=== PATIENT | female | born 1935 | race Caucasian/White ===

== ENCOUNTER 2018-02-09 20:34 | Emergency (ER) | payer OTHER ==
[~2018-02-09] VITALS: Ht 157.5 cm; Wt 78.7 kg
[2018-02-09 21:07] LABS: Basophils # (auto) 0.1 uL; Basophils % (auto) 1.5 % (0.0-2.0); Eosinophils # (auto) 0.5 uL; Eosinophils % (auto) 5.6 % (0.0-7.0); Hematocrit 41.8 % (36.0-46.0); Hemoglobin 14.6 g/dL (12.2-16.2); Lymphocytes # (auto) 2.5 uL; Lymphocytes % (auto) 31.3 % (10.0-50.0); Mean Corpuscular Hgb Conc. 34.9 g/dL (32.0-36.0); Mean Corpuscular Volume 97.5 fL (80.0-100.0); Monocytes # (auto) 0.8 uL; Monocytes % (auto) 10.1 % (0.0-12.0); Neutrophils # (auto) 4.2 uL; Neutrophils % (auto) 51.5 % (37.0-80.0); Platelet Count (auto) 265 10^3/uL (140-450); Red Blood Cells 4.29 10^6/uL (4.0-5.20); Red Cell Distribution Width 12.4 % (11.8-14.3); White Blood Cell 8.1 10^3/uL (4.4-10.8)
[2018-02-09 21:27] LABS: Alanine Aminotransferase 27 U/L (13-56); Albumin 3.9 g/dL (3.4-5.0); Anion Gap 11 (5-15); Aspartate Aminotransferase 25 U/L (15-37); BUN/Creatinine Ratio 16.5; Blood Urea Nitrogen 16 mg/dL (7-18); Calcium 8.9 mg/dL (8.5-10.1); Carbon Dioxide 21 mmol/L (21-32); Chloride 111 mmol/L (98-107); GFR African American 71 mL/min; GFR Non-African American 59 mL/min; Glucose 138 mg/dL (74-106); Magnesium 2.3 mg/dL (1.6-2.6); Potassium 3.6 mmol/L (3.5-5.1); Sodium 143 mmol/L (136-145)
[2018-02-09 21:33] LABS: Alkaline Phosphatase 140 U/L (45-117); Bilirubin, Total 0.7 mg/dL (0.2-1.0); INR 0.94 (0.9-1.15); Partial Thromboplastin Time 24.9 sec (22.64-33.71); Prothrombin Time 10.2 sec (9.37-12.3); Total Protein 7.6 g/dL (6.4-8.2)
[2018-02-09] MEDS ORDERED: HYDROcodone-ACET 5/325MG TAB PO ONE (23:45)
[2018-02-10] MEDS ORDERED: MORPHINE SULFATE 8mg/ml INJ SDV IM ONE (02:30)
[2018-02-10] MEDS ORDERED: ONDANSETRON HCL 4 MG/2 ML VIAL IM ONE (04:15)
[2018-02-10 06:19] VITALS: BP 111/37
== END 2018-02-10 06:53 | disposition home or self-care (01) ==
LOC: ER 20:34 → EDBD 20:34 → ER 02-10 06:53
DX: M47.814 Spondylosis without myelopathy or radiculopathy, thoracic region (principal); M54.42 Lumbago with sciatica, left side; J44.9 Chronic obstructive pulmonary disease, unspecified
CPT/HCPCS: 36415; 71045; 72128; 72131; 73030; 80053; 83735; 83880; 84484; 85025; 85610; 85730; 93005; 96372; 99285; J2270; J2405

== ENCOUNTER 2024-11-02 06:15 | Inpatient (IN) | payer OTHER ==
[~2024-11-02] VITALS: Ht 149.9 cm; Wt 71.9 kg
[~2024-11-02 06:15] MED LIST: AMLO5CAP2 PO; ASPI81CH74 PO; ATOR40TA52 PO; BRIN1SUS7 OP; HYDR12.59 PO; LATA0.008 RIGHTEYE; LEVO25TA6 PO; MULT-688 PO; PROP1TAB51 PO
[2024-11-02] MEDS: TRANEXAMIC ACID 20 ML ONE (06:51)
[2024-11-02] MEDS ORDERED: MIDAZOLAM HCL 2MG/2ML 2ml VIAL (1mg/ml) ONE (06:51)
[2024-11-02] MEDS ORDERED: fentaNYL CITRATE 100 MCG/2 ML VL ONE (06:51)
[2024-11-02] MEDS ORDERED: PROPOFOL 10 MG/ML 20 ML IV ONE (06:53)
[2024-11-02] MEDS ORDERED: PHENYLEPHRINE HCL 10 MG/ML VL ONE (06:54)
[2024-11-02] MEDS: ceFAZolin 2 GM/D5W100ml 100 ML IV ONE (07:04)
[2024-11-02] MEDS: CEFEPIME 1GM/ 50ML 100 ML IV ONE (07:43)
[2024-11-02] MEDS ORDERED: NITROGLYCERIN 0.4 MG SL TAB SL PRN (08:45)
[2024-11-02] MEDS ORDERED: traMADol HCL 50 MG TAB PO PRN (08:45)
[2024-11-02] MEDS ORDERED: ACETAMINOPHEN 325 MG TAB PO PRN (08:45)
[2024-11-02] MEDS ORDERED: MORPHINE SULFATE INJ 2 MG/ml SYRG IV PRN (08:45)
[2024-11-02] MEDS: ceFAZolin 1GM/50ML 50 ML IV SCH (08:45)
[2024-11-02] MEDS ORDERED: ePHEDrine SULFATE 50 MG/ML AMP ONE (09:04)
[2024-11-02] MEDS: ROPIVACAINE 0.5% (5MG/ML) 20ML AMPULE IJ ONE (09:23)
[2024-11-02] MEDS: BUPIVACAINE 0.25% INJ 50ML VIAL ONE (09:33)
[2024-11-02] MEDS: KETOROLAC TROMETH 30 MG/ML 1ML VIAL ONE (09:34)
[2024-11-02] MEDS: VANCOMYCIN HCL 1000 MG VL ONE (09:35)
[2024-11-02] MEDS: MORPHINE SULF PF 5 MG/10 ML VIAL ONE (09:35)
[2024-11-02] MEDS: PROPRANOLOL HCL 20 MG TAB PO SCH (10:00)
[2024-11-02] MEDS: hydroCHLOROthiazide 25 MG TAB PO SCH (10:00)
[2024-11-02] MEDS: CEFEPIME 1GM/ 50ML 50 ML IV SCH (10:00)
[2024-11-02] MEDS: DOCUSATE SOD 100 MG CAP PO SCH (10:00)
--- NOTE | 2024-11-02 10:06 | DVH ---
EXAM: XY PELVIS AP CLINICAL INDICATION: sp Left KEN TECHNIQUE: XY PELVIS AP Comparison: None FINDINGS/IMPRESSION: There is no evidence of acute fracture or dislocation. Left hip arthroplasty. Severe right hip osteoarthritis The alignment is anatomical. There is no radiopaque foreign body.
[2024-11-02] MEDS: LACTATED RINGER'S 1,000 ML IV SCH (10:30)
[2024-11-02] MEDS ORDERED: ACETAMINOPHEN IV 1000 MG/100ML (10MG/ML) IV PRN (10:45)
[2024-11-02] MEDS: ONDANSETRON HCL 4 MG/2 ML VIAL IV ONE (11:04)
[2024-11-02] MEDS: HYDROmorphone HCL 2 MG/ML VL/or syr IV PRN ×2 (11:13→16:35)
[2024-11-02] MEDS: SODIUM CHLOR 0.9% PF (SALINE LOCK) 10ML VIAL/SYR IV SCH (14:00)
[2024-11-02 15:22] VITALS: PULSE 82; RESP 16; O2SAT 97
[2024-11-02 15:52] VITALS: BP 125/73; PULSE 84; RESP 18; TEMP 97.2; O2SAT 97
[2024-11-02] MEDS: ONDANSETRON HCL 4 MG/2 ML VIAL IV PRN (16:36)
[2024-11-02 17:00] VITALS: BP 134/64; PULSE 85; RESP 18; TEMP 97.3; O2SAT 95
[2024-11-02] MEDS: LATANOPROST 0.005 % OPTH(EYE) SOL 2.5ML RIGHTEYE SCH (17:57)
[2024-11-02 21:00] VITALS: BP 131/69; PULSE 96; RESP 19; TEMP 98.2; O2SAT 92
[2024-11-02] MEDS: HYDROcodone-ACET 5/325MG TAB PO PRN (23:09)
[2024-11-02] MEDS: ATORVASTATIN 20 MG TAB PO SCH (23:09)
[2024-11-03] MEDS: ceFAZolin 1GM/50ML 50 ML IV SCH (00:06)
[2024-11-03 01:00] VITALS: BP 100/48; PULSE 95; RESP 19; TEMP 98.1; O2SAT 92
[2024-11-03 05:00] VITALS: BP 118/45; PULSE 74; RESP 19; TEMP 98.3; O2SAT 92
--- NOTE | 2024-11-03 06:12 | DVHOP2 ---
Operative Report - 2 Report Details Date: 11/02/24 Preop Diagnosis: Left hip osteoarthritis Postop Diagnosis: Left hip osteoarthritis Surgeon: Ander Coleman MD Anesthesiologist: Bindu ANDINO Anesthesia: Regional Consent: The patient was informed of the risks and benefits of the procedure. These include but are not limited to complications of anesthesia, postoperative infection, incomplete relief of symptoms, recurrence of symptoms, damage to blood vessels, nerves and tendons, deep venous thrombosis, pulmonary embolism and possible need for repeat surgery in the future. Estimated Blood Loss: 300 cc Name of Procedure Performed Left total hip arthroplasty with computer navigation Procedure Details Procedure Details: FINDINGS: Extensive degenerative disease with grade IV changes INDICATION: This patient has failed non-operative treatments for hip arthritis and is now indicated for a total hip replacement. Preoperatively in the waiting area as well as in the office, I had a long discussion with the patient regarding the plan, the expected outcome, the risks, benefits, and alternatives of surgery. The risks include, but are not limited to, infection (which may require future surgery and removal of implants) , bleeding (which may require a transfusion), damage to nerves, arteries, veins, tendons, muscles and other adjacent structures. Also discussed the possibilities of dislocation, leg-length discrepancy, intraoperative fractures, implant loosening, heterotopic bone formation, and revision for variety of reasons, and medical complications etc. This was discussed at length and consent has been obtained. DESCRIPTION OF PROCEDURE: In the preoperative holding area, the consent was reviewed and the appropriate extremity was verified by the patient and marked with my initials. The patient was then transferred to the operating theatre. Appropriate anesthetia was induced. All bony prominences were well padded. A time out was performed verifying the side and site of surgery according to standard protocol. Preoperative antibiotics were given. Tranexamic acid was given. The patient was then placed in the lateral decubitus position and fixed with rigid pelvic fixation. All bony prominences were well padded and an axillary roll was placed. The affected hip area was then prepped and draped in the usual sterile fashion. Using an 11-blade, three stab incisions were made over the iliac crest. Two threaded guide pins were inserted into the crest confirming to be in bone. The pelvic array was attached to the pins and tightened. We made a standard posterolateral incision sharply through the skin and carried our dissection down through subcutaneous tissue to the underlying fascia achieving hemostasis where necessary. We incised the fascia in line with our incision. We identified and protected the sciatic nerve. We took down the external rotators and hip capsule from their insertion into the greater trochanter, tagged them and retracted them posteriorly for further protection of the sciatic nerve. A check point was placed into the greater trochanter and the hip center and leg length length were registered. We then dislocated the femoral head and performed an osteotomy of the femoral neck in accordance with our pre-operative plan. The labrum was excised with a long-handle knife, and we exposed the acetabular rim and cotyloid fossa. We then reamed up to our final size in accordance with the preoperative plan. We copiously irrigated and then impacted the final cup into position. We confirmed the position with the robotic navigation guidance. We placed one dome screws into the posterior-superior quadrant in the usual fashion. We irrigated the cup and impacted the liner, checking to make sure it was well seated. Attention was then turned to the femur. We used a box osteotome followed by a canal finder to gain entry to the canal. Intramedullary contents were suctioned and care was taken to ensure they did not touch the tissues. We sequentially reamed until good cortical contact, then broached up to out final size. We trialed with the appropriate femoral neck and head and reduced the hip. The hip was taken through a full range of motion. The hip soft tissues were examined in extension and external rotation, the anterior capsule and IT band were palpated, and combined anteversion was determined to be 40 degrees. The hip was stable at maximum flexion, at 90 degrees of flexion and 45 degrees of internal rotation and the position of sleep. Leg lengths were restored as shown using the computer navigation, and the trial LTC matched preoperative and intraoperative templating. The hip was then dislocated and trial components removed. We copiously irrigated the wound and impacted the final femoral stem into position. The femoral head was impacted onto a clean and dry trunion and confirmed to be seated. The hip was reduced ensuring to tissues in the acetabular cup. We again brought it through a full functional range of motion and there was no evidence for dislocation, instability, or impingement. The checkpoint was removed. A dilute betadine solution (17.5mL in 500mL saline) was used to wash the joint and left to sit for 3 minutes. This was then irrigated out with copious amounts of pulse lavage. We sprinkled 1g vancomycin powder below the fascia and 1g above the fascia. We copiously irrigated the wound and soft tissues. The short external rotators and capsule were repaired to the greater trochanter through drill holes, and the quadratus was repaired. We palpated the sciatic nerve in continuity without tension. The fascia was closed with vicryl and a barbed suture. We closed over the fascia with vicryl suture and re-approximated the skin with laurita. A sterile dressing was placed. We returned the patient to the supine position. We verified all lower extremity compartments were soft and compressible and that we had intact distal pulses and checked our leg length hinduism. the patient was then transferred to the recovery room in stable condition. Condition Good Disposition Still a Patient ANDER COLEMAN MD Nov 03, 2024 06:12
[2024-11-03] MEDS: LEVOTHYROXINE SODIUM 25 MCG TAB PO SCH (06:48)
[2024-11-03 07:48] LABS: Alanine Aminotransferase 19 U/L (7-40); Alkaline Phosphatase 110 U/L (46-116); Anion Gap 8 (5-15); BUN/Creatinine Ratio 20.4 (10.0-20.0); Calcium 9.1 mg/dL (8.7-10.4); Carbon Dioxide 25 mmol/L (20-31); Glucose 85 mg/dL (74-106); Potassium 3.6 mmol/L (3.5-5.1); Sodium 141 mmol/L (136-145)
[2024-11-03 07:49] LABS: Albumin 3.5 g/dL (3.2-4.8); Aspartate Aminotransferase 40 U/L (13-40); Bilirubin, Total 0.9 mg/dL (0.2-1.0)
[2024-11-03 08:00] LABS: Blood Urea Nitrogen 23 mg/dL (9-23); Chloride 108 mmol/L (98-107); Total Protein 5.6 g/dL (5.7-8.2)
[2024-11-03 08:07] LABS: Hematocrit 29.5 % (36.0-46.0)
--- NOTE | 2024-11-03 08:24 | DVH ---
EXAM: XY PELVIS AP CLINICAL INDICATION: sp Left KEN TECHNIQUE: XY PELVIS AP Comparison: XY PELVIS AP on DOS: 11/02/24 FINDINGS/IMPRESSION: There is no evidence of acute fracture or dislocation. Left total hip arthroplasty. The alignment is anatomical. There is no radiopaque foreign body.
[2024-11-03 09:00] VITALS: BP 112/38; PULSE 83; RESP 17; TEMP 99.2; O2SAT 96
[2024-11-03] MEDS: ENOXAPARIN SOD 40 MG/0.4 ML SYRINGE SC SCH (09:11)
[2024-11-03 13:00] VITALS: BP 129/50; PULSE 74; RESP 17; TEMP 99; O2SAT 93
--- NOTE | 2024-11-03 15:26 | DVHPN2 ---
Progress Note Date Seen: Nov 03, 2024 Medical Necessity Reason Pt with a Central, PICC or Fol: No Subjective Patient reports: No new complaints (pain in left hip as expected) Objective vital signs Vital Sign Date Time Temp Pulse Resp B/P (MAP) Pulse Ox O2 Delivery O2 Flow Rate FiO2 11/03/24 09:17 91 124/47 11/03/24 09:00 99.2 17 96 99.2 11/03/24 08:00 Room Air* 0 21 Total Intake and Output 11/02/24 11/02/24 11/03/24 15:00 23:00 07:00 Intake Total 500 ml 200 ml Output Total 200 ml 800 ml Balance 300 ml -600 ml medications Current Medications Medications Dose Ordered Sig/Kam Route Start Time Stop Time Status Last Admin Dose Admin Latanoprost 1 drop QPM RIGHTEYE 11/02/24 18:00 11/02/24 17:57 1 DROP Levothyroxine Sodium 25 mcg QAM PO 11/03/24 07:00 11/03/24 06:48 25 MCG Atorvastatin Calcium 40 mg HS PO 11/02/24 22:00 11/02/24 23:09 40 MG Hydrochlorothiazide 12.5 mg DAILY PO 11/02/24 10:00 11/03/24 09:16 12.5 MG Propranolol HCl 10 mg BID PO 11/02/24 10:00 11/03/24 09:17 10 MG Lactated Ringer's 1,000 ml @ 100 mls/hr Q10H IV 11/02/24 08:45 11/03/24 06:48 100 MLS/HR Sodium Chloride 10 ml Q8HR IV 11/02/24 14:00 11/03/24 06:48 10 ML Acetaminophen/ Hydrocodone Bitart 1 tab Q4HP PRN PO 11/02/24 08:45 11/03/24 09:14 1 TAB Hydromorphone HCl 1 mg Q2HP PRN IV 11/02/24 08:45 11/02/24 16:35 1 MG Ondansetron HCl 4 mg Q6HP PRN IV 11/02/24 08:45 11/02/24 16:36 4 MG Docusate Sodium 100 mg Q12HR PO 11/02/24 10:00 11/03/24 09:11 100 MG Enoxaparin Sodium 40 mg DAILY SC 11/03/24 10:00 11/03/24 09:11 40 MG Nitroglycerin 0.4 mg Q5MINP PRN SL 11/02/24 08:45 Morphine Sulfate 2 mg Q30M PRN IV 11/02/24 08:45 Cefepime HCl 50 ml @ 12.5 mls/hr DAILY IV 11/02/24 10:00 11/03/24 09:11 12.5 MLS/HR Tramadol HCl 50 mg Q4HP PRN PO 11/02/24 08:45 Acetaminophen 650 mg Q6HP PRN PO 11/02/24 09:15 Examination: GENERAL:Normal, MSK:Abnormal laboratory and microbiology Laboratory Tests 11/03/24 05:27 Test 11/03/24 05:27 Range/Units Serum Glucose 85 74-106 mg/dL Problem List/Assessment/Plan Problem List/Assessment/Plan 89 yo F sp Left KEN POD 1 WBAT with walker PT pain control dc planning for snf vs home labs stable on oxygen - wean as tolerated Plan discussed with: Patient My Orders My Orders Orders - ED GARDNER MD Procedure Category Date Status Time Pelvis Ap XY 11/03/24 Resulted 06:05 ED GARDNER MD Nov 03, 2024 15:26
[2024-11-03 17:00] VITALS: BP_SYST 46; PULSE 83; RESP 16; TEMP 99; O2SAT 92
[2024-11-03] MEDS: ACETAMINOPHEN 325 MG TAB PO PRN (18:47)
[2024-11-03 21:00] VITALS: BP 125/57; PULSE 90; RESP 18; TEMP 98.4; O2SAT 94
[2024-11-04 01:00] VITALS: BP 140/56; PULSE 91; RESP 18; TEMP 98.8; O2SAT 90
[2024-11-04 05:00] VITALS: BP 138/56; PULSE 84; RESP 18; TEMP 98.4; O2SAT 90
[2024-11-04 07:00] LABS: Hematocrit 29.5 % (36.0-46.0); Hemoglobin 9.9 g/dL (12.2-16.2)
[2024-11-04 09:00] VITALS: BP 131/49; PULSE 80; RESP 16; TEMP 98.5; O2SAT 92
[2024-11-04 13:00] VITALS: BP 137/45; PULSE 75; RESP 19; TEMP 97.9; O2SAT 96
[2024-11-04 17:00] VITALS: BP 127/50; PULSE 70; RESP 17; TEMP 98.1; O2SAT 100
[2024-11-04 21:00] VITALS: BP 135/51; PULSE 80; RESP 20; TEMP 98.2; O2SAT 86
[2024-11-05 00:58] VITALS: BP 127/79; PULSE 76; RESP 17; TEMP 98.3; O2SAT 95
[2024-11-05 05:00] VITALS: BP 127/42; PULSE 71; RESP 20; TEMP 98.1; O2SAT 93
--- NOTE | 2024-11-05 05:20 | DVHPN2 ---
Progress Note Date Seen: Nov 04, 2024 Medical Necessity Reason Pt with a Central, PICC or Fol: No Subjective Patient reports: Other (pateint up out of bed once with therapy) Objective vital signs Vital Sign Date Time Temp Pulse Resp B/P (MAP) Pulse Ox O2 Delivery O2 Flow Rate FiO2 11/05/24 00:58 98.3 76 17 127/79 (95) 95 98.3 11/04/24 20:00 Room Air* 0 21 Total Intake and Output 11/04/24 11/04/24 11/05/24 15:00 23:00 07:00 Intake Total 200 ml Balance 200 ml medications Current Medications Medications Dose Ordered Sig/Kam Route Start Time Stop Time Status Last Admin Dose Admin Latanoprost 1 drop QPM RIGHTEYE 11/02/24 18:00 11/04/24 18:07 1 DROP Levothyroxine Sodium 25 mcg QAM PO 11/03/24 07:00 11/04/24 06:04 25 MCG Atorvastatin Calcium 40 mg HS PO 11/02/24 22:00 11/04/24 22:04 40 MG Hydrochlorothiazide 12.5 mg DAILY PO 11/02/24 10:00 11/04/24 09:42 12.5 MG Propranolol HCl 10 mg BID PO 11/02/24 10:00 11/04/24 22:01 10 MG Lactated Ringer's 1,000 ml @ 100 mls/hr Q10H IV 11/02/24 08:45 11/04/24 00:45 100 MLS/HR Sodium Chloride 10 ml Q8HR IV 11/02/24 14:00 11/04/24 22:06 10 ML Acetaminophen/ Hydrocodone Bitart 1 tab Q4HP PRN PO 11/02/24 08:45 11/04/24 10:27 1 TAB Hydromorphone HCl 1 mg Q2HP PRN IV 11/02/24 08:45 11/04/24 15:07 1 MG Ondansetron HCl 4 mg Q6HP PRN IV 11/02/24 08:45 11/04/24 18:44 4 MG Docusate Sodium 100 mg Q12HR PO 11/02/24 10:00 11/04/24 22:04 100 MG Enoxaparin Sodium 40 mg DAILY SC 11/03/24 10:00 11/04/24 09:41 40 MG Nitroglycerin 0.4 mg Q5MINP PRN SL 11/02/24 08:45 Morphine Sulfate 2 mg Q30M PRN IV 11/02/24 08:45 Cefepime HCl 50 ml @ 12.5 mls/hr DAILY IV 11/02/24 10:00 11/04/24 09:45 12.5 MLS/HR Tramadol HCl 50 mg Q4HP PRN PO 11/02/24 08:45 Acetaminophen 650 mg Q6HP PRN PO 11/02/24 09:15 11/03/24 18:47 650 MG Examination: GENERAL:Normal, MSK:Abnormal laboratory and microbiology Laboratory Tests 11/04/24 05:28 11/03/24 05:27 Test 11/03/24 05:27 Range/Units Serum Glucose 85 74-106 mg/dL Problem List/Assessment/Plan Problem List/Assessment/Plan 89 yo F sp Left KEN POD 2 WBAT with walker PT pain control dc planning for snf vs home labs stable out of bed ambulate/ chair as much as possible Plan discussed with: Patient My Orders My Orders Orders - ED GARDNER MD Procedure Category Date Status Time Out Of Bed Ambulate BRANDY 11/05/24 Verified 05:18 Up In Chair Qid BRANDY 11/05/24 Verified 05:18 * Auto Emissions Technician CONS 11/05/24 Verified Consult ED GARDNER MD Nov 05, 2024 05:20
[2024-11-05 07:41] LABS: Hematocrit 29.4 % (36.0-46.0); Hemoglobin 9.8 g/dL (12.2-16.2)
[2024-11-05 08:46] VITALS: BP 118/53; PULSE 71; RESP 16; TEMP 98.4; O2SAT 93
[2024-11-05 13:00] VITALS: BP 121/49; PULSE 62; RESP 17; TEMP 97.6; O2SAT 94
[2024-11-05 16:54] VITALS: BP 112/54; PULSE 68; RESP 17; TEMP 97.9; O2SAT 94
[2024-11-05 21:00] VITALS: BP 119/47; PULSE 73; RESP 16; TEMP 98.2; O2SAT 98
[2024-11-06 01:00] VITALS: BP 137/59; PULSE 56; RESP 17; TEMP 99.6; O2SAT 99
[2024-11-06 05:00] VITALS: BP 131/58; PULSE 71; RESP 17; TEMP 97.8; O2SAT 98
[2024-11-06 08:00] VITALS: PULSE 72; RESP 16; O2SAT 100
[2024-11-06 09:00] VITALS: BP 147/47; PULSE 72; RESP 16; TEMP 97.8; O2SAT 100
[2024-11-06 13:00] VITALS: BP 147/44; PULSE 81; RESP 20; TEMP 98.4; O2SAT 97
[2024-11-06 17:00] VITALS: BP 125/38; PULSE 76; RESP 16; TEMP 98.3; O2SAT 92
--- NOTE | 2024-11-11 08:08 | DVHDS2 ---
Discharge Note Date of Service: Nov 06, 2024 Discharge Diagnosis Discharge Diagnosis: sp Left total hip arthroplasty HPI/Discussion HPI/Discussion 89 yo F sp Left KEN on 11/03/24 -- patient doing well/ tolerating PO diet/ PO pain meds; patient is ready to go home Home Medications Reported Medications Multiple Vitamins W/ Minerals (PRESERVISION AREDS 2) Unknown Strength Cap, PO, CAP 10/28/24 Latanoprost (LATANOPROST) 0.005 % Latosha, 1 DROP RIGHTEYE QPM, #7.5 ML 3 Refills 10/28/24 Atorvastatin Calcium (ATORVASTATIN CALCIUM) 40 Mg Tab, 1 TAB PO DAILY, #30 TAB 5 Refills 10/28/24 Levothyroxine Sodium (Levothyroxine Sodium) 25 Mcg Tab, 25 MCG PO QAM, MCG 10/28/24 Aspirin (Aspirin 81 Low Dose) 81 Mg Chw, 81 MG PO DAILY, TAB.CHEW 10/28/24 Amlodipine Besylate-Benazepril (Lotrel) Unknown Strength Cap, PO DAILY, #30 CAP 5 Refills 10/28/24 Propranolol HCl (Propranolol Hydrochloride) 10 Mg Tab, 10 MG PO BID, TAB 10/28/24 Hydrochlorothiazide (Hydrochlorothiazide) 12.5 Mg Cap, 1 CAP PO DAILY, #30 CAP 5 Refills 10/28/24 Brinzolamide-Brimonidine Tartr (SIMBRINZA) Unknown Strength Sun, OP, ML 10/28/24 Discharge Summary Discharge summary 89 yo F sp Left KEN on 11/03/24 -- patient doing well/ tolerating PO diet/ PO pain meds; patient is ready to go home Disposition Disposition: Discharge home/self care Disposition condition: Good Discharge instructions WBAT with walker pain meds sent to pharmacy Incentive spriometer Home PT/nursing setup fu with Dr. Coleman in 2 weeks Visit Coding Complete: Yes ED COLEMAN MD Nov 11, 2024 08:08
== END 2024-11-06 21:21 | disposition home health service (06) | DRG 470 ==
LOC: SUR 06:15 → OVERFLOW 08:45 → CENTRAL 14:58
PROVIDERS: ADMIT Orthopaedic Surgery Adult Reconstructive Orthopaedic Surgery; ATTEND Orthopaedic Surgery Adult Reconstructive Orthopaedic Surgery
PROC: 8E0YXBF Computer Assisted Procedure of Lower Extremity, With Fluoroscopy (ICD-10-PCS; 2024-11-02)
PROC: 0SRB06Z Replacement of Left Hip Joint with Oxidized Zirconium on Polyethylene Synthetic Substitute, Open Approach (ICD-10-PCS; principal; 2024-11-02 08:44)
DX: M16.12 Unilateral primary osteoarthritis, left hip (principal); Z79.82 Long term (current) use of aspirin; Z79.899 Other long term (current) drug therapy
CPT/HCPCS: 36415; 72170; 80053; 85014; 85018; 86850; 86900; 86901; 97110; 97116; 97163; 97530; G0378; J1885; J2250; J2405; J2704; J3490